=== PATIENT | male | born 1945 | race Caucasian/White ===

== ENCOUNTER → 2017-01-15 | Outpatient (CLI) | payer MEDICARE, OTHER ==
--- NOTE | 2017-01-15 14:20 | RADIOLOGY REPORT PS360 ---
History and Indications: Chest pain, family history. Procedure: Patient exercised on Carmelo protocol 10 minutes and 31 seconds, resting heart rate was 70 bpm resting blood pressure 152/82, with exercise maximum heart rate achieved was 1 59 bpm which is equal to 107% of the maximum predicted heart rate, and the blood pressure was 240/90. Test was started due to shortness of breath and leg fatigue patient denied any complained of chest pain. Patient has good exercise capacity achieved 12.8mets of workload on treadmill, the blood pressure response to exercise was hypertensive. Electrocardiogram: Resting electrocardiogram showed sinus rhythm left atrial enlargement inferolateral ST-T wave changes consider ischemia versus strain pattern, with exercise there is additional downsloping ST segment depression noted from the baseline EKG, occasional premature ventricular complexes were also seen. The EKG portion of the exercise Myoview is nondiagnostic secondary to baseline abnormal EKG. Cardiac stress and resting SPECT images: Cardiac stress and resting SPECT images were obtained using technetium 99 Myoview 10.7 mCi at rest, and 31.1 mCi at stress. Gated SPECT further analysis of segmental wall motion and calculation of the ejection fraction was also done. Cardiac stress and resting SPECT images show uniform myocardial activity without any segmental perfusion abnormality, computer derived ejection fraction is 60% with no obvious regional wall motion abnormality, right ventricle is normal size and contractility. Conclusion: 1. The EKG portion of the exercise Myoview is nondiagnostic secondary to baseline abnormal EKG, patient has good exercise capacity achieved 12.8 mets of workload on treadmill, the blood pressure response to exercise was hypertensive, test was started due to shortness of breath and fatigue. 2. No obvious scintigraphic evidence of reversible ischemia seen at this level of exercise, computer derived ejection fraction 60% with no obvious regional wall motion abnormality, right ventricle is normal size and contractility.
== END ==
LOC: RAD 06:00
DX: R07.89 Other chest pain (principal)
CPT/HCPCS: A9502